=== PATIENT | female | born 1955 | race Caucasian/White ===

== ENCOUNTER 2016-08-31 03:45 | Inpatient (IN) | payer OTHER ==
[~2016-08-31] VITALS: Ht 144.8 cm; Wt 55.0 kg
[~2016-08-31 03:45] MED LIST: AMBIEN10 MG PO; CULTURELLE10 Billion PO; DESYREL 50MG50 MG; DESYREL 50MG50 MG PO; FLAGYL 250250 MG/TAB PO; FLAGYL500 MG PO; IMITREX50 MG PO; LEVAQUIN 5500 MG/TA1 PO; LEVAQUIN 750MG750 M1 PO; LISINOPRIL10 MG PO; NORCO 325 MG-51 TAB PO; OMNICEF 300MG300 MG PO; PANCREATIC ENZY1 CAP PO; PERCOCET 325 MG1 TA2 PO; PHENERGAN 25 TA25 MG PO; PHENERGAN25 MG RC; PHENERGAN50 MG/SUPP RC; PRILOSEC 20MG20 MG PO; PROBIOTIC; ULTRAM 50MG TAB50 MG PO; XANAX0.5 MG PO; ZANTAC150 MG PO; ZOFRAN ODT4 MG PO; [UNRECOGNIZED DRUG - OTHER] PO
[2016-08-31 04:10] LABS: BASO % 0.3 % (0.0-2.0); EOS # 0.2 (0.0-0.7); EOS % 3.2 % (0-4.0); GRAN # 4.5 (1.4-6.5); GRAN % 68.9 % (42.2-75.2); HEMATOCRIT 37.9 % (37.0-47.0); HEMOGLOBIN 12.5 g/dl (12.5-16.0); LYMPH # 1.4 (1.2-3.4); LYMPH % 21.5 % (20.0-51.0); MEAN CELL VOLUME 84 fl (80.0-100.0); MEAN CORPUSCULAR HEMOGLOBIN 28 pg (27.0-31.0); MEAN CORPUSCULAR HGB CONC 33 g/dl (33.0-37.0); MEAN PLATELET VOLUME 8.7 fl (7.4-10.4); MONO # 0.4 (0.1-0.6); MONO % 5.9 % (1.7-9.3); PLATELET COUNT 124 K/mm3 (130-400); RED BLOOD COUNT 4.52 M/mm3 (4.10-5.30); REDCELL DISTRIBUTION WIDTH-CV 13.2 % (11.5-14.5); WHITE BLOOD COUNT 6.5 K/mm3 (4.8-10.8)
[2016-08-31 04:18] LABS: ALANINE AMINOTRANSFERASE 148 U/L (9-52); ALBUMIN 3.8 gm/dL (3.5-5.0); ALKALINE PHOSPHATASE 160 U/L (50-136); ANION GAP 10 mmol/L (7-16); BILIRUBIN,TOTAL 0.8 mg/dL (0.0-1.0); BLOOD UREA NITROGEN 20 mg/dL (7-17); CALCIUM 8.8 mg/dL (8.4-10.2); CARBON DIOXIDE 29 mmol/L (22-30); CHLORIDE 98 mmol/L (98-107); CREATININE, serum 1.16 mg/dL (0.52-1.25); GLUCOSE 94 mg/dL (74-106); LIPASE 722 U/L (23-300); SODIUM 137 mmol/L (137-145); TOTAL PROTEIN 6.8 gm/dL (6.4-8.2)
[2016-08-31] MEDS ORDERED: PRILOSEC 20MG20 MG PO (04:20)
[2016-08-31 04:27] LABS: B-TYPE NATRIURETIC PEPTIDE 391 pg/mL (0-125)
[2016-08-31 04:37] LABS: TROPONIN-I < 0.012 ng/mL (0.000-0.034)
[2016-08-31 08:30] VITALS: BP 135/75; PULSE 114; TEMP 97.8
[2016-08-31] MEDS ORDERED: XANAX .25M0.25 MG/TA PO (09:07)
[2016-08-31] MEDS ORDERED: CREON 120000 U-1 ECC PO (09:09)
[2016-08-31] MEDS ORDERED: CALAN120 MG PO (10:54)
[2016-08-31 11:45] VITALS: BP 115/64; PULSE 112; TEMP 98.3
[2016-08-31 15:53] VITALS: BP 119/62; PULSE 105; TEMP 99.4
[2016-08-31 21:11] VITALS: BP 142/67; PULSE 89; TEMP 98.8
[2016-08-31 22:57] VITALS: BP 146/81; PULSE 89; TEMP 98.1
[2016-09-01 04:40] LABS: BASO % 0.1 % (0.0-2.0); GRAN # 6.8 (1.4-6.5); GRAN % 74.4 % (42.2-75.2); HEMATOCRIT 38.3 % (37.0-47.0); HEMOGLOBIN 12.4 g/dl (12.5-16.0); LYMPH # 1.5 (1.2-3.4); LYMPH % 16.2 % (20.0-51.0); MEAN CELL VOLUME 86 fl (80.0-100.0); MEAN CORPUSCULAR HEMOGLOBIN 28 pg (27.0-31.0); MEAN CORPUSCULAR HGB CONC 32 g/dl (33.0-37.0); MEAN PLATELET VOLUME 8.7 fl (7.4-10.4); MONO # 0.8 (0.1-0.6); MONO % 9.1 % (1.7-9.3); PLATELET COUNT 132 K/mm3 (130-400); RED BLOOD COUNT 4.47 M/mm3 (4.10-5.30); REDCELL DISTRIBUTION WIDTH-CV 13.3 % (11.5-14.5); WHITE BLOOD COUNT 9.2 K/mm3 (4.8-10.8)
[2016-09-01 04:42] VITALS: BP 151/60; PULSE 96; TEMP 98.1
[2016-09-01 04:47] LABS: CALCIUM 9.1 mg/dL (8.4-10.2); CREATININE, serum 0.78 mg/dL (0.52-1.25); POTASSIUM 4.5 mmol/L (3.4-5.0)
[2016-09-01 08:48] VITALS: BP 140/66; PULSE 101; TEMP 99.4
[2016-09-01 12:43] VITALS: BP 131/67; PULSE 102; TEMP 100.1
[2016-09-01 16:59] VITALS: BP 105/59; PULSE 115; TEMP 99.2
[2016-09-01 19:28] VITALS: BP 131/66; PULSE 101; TEMP 99
[2016-09-01 23:42] VITALS: BP 111/77; PULSE 123; TEMP 96
[2016-09-02] VITALS (1115 sets, daily range): BP systolic 111–132; BP diastolic 46–103; PULSE 76–196; TEMP 97.4–98.7; O2SAT 75–100
[2016-09-02] MEDS ORDERED: SENNA8.6 MG PO (01:58)
[2016-09-02 05:55] LABS: ADJUSTED CALCIUM 9.2 mg/dL (8.4-10.2); ALBUMIN 3.2 gm/dL (3.5-5.0); BILIRUBIN,TOTAL 0.7 mg/dL (0.0-1.0); CALCIUM 8.6 mg/dL (8.4-10.2); CREATININE, serum 0.81 mg/dL (0.52-1.25); MAGNESIUM 1.9 mg/dL (1.6-2.3); POTASSIUM 4.2 mmol/L (3.4-5.0); TOTAL PROTEIN 6.3 gm/dL (6.4-8.2)
[2016-09-02 06:24] LABS: THYROID STIMULATING HORMONE 0.705 uIU/mL (0.465-4.680)
[2016-09-03] VITALS (808 sets, daily range): BP systolic 130–181; BP diastolic 59–88; PULSE 76–116; TEMP 98–99.5; O2SAT 84–100
[2016-09-03 05:59] LABS: BASO % 0.3 % (0.0-2.0); EOS # 0.1 (0.0-0.7); EOS % 2.4 % (0-4.0); GRAN # 4.1 (1.4-6.5); GRAN % 70.9 % (42.2-75.2); LYMPH # 1.1 (1.2-3.4); MEAN CELL VOLUME 86 fl (80.0-100.0); MEAN CORPUSCULAR HGB CONC 32 g/dl (33.0-37.0); MEAN PLATELET VOLUME 8.4 fl (7.4-10.4); MONO # 0.4 (0.1-0.6); MONO % 7.1 % (1.7-9.3); PLATELET COUNT 159 K/mm3 (130-400); RED BLOOD COUNT 3.98 M/mm3 (4.10-5.30); REDCELL DISTRIBUTION WIDTH-CV 13.2 % (11.5-14.5); WHITE BLOOD COUNT 5.8 K/mm3 (4.8-10.8)
[2016-09-03 06:01] LABS: HEMATOCRIT 34.4 % (37.0-47.0); MEAN CORPUSCULAR HEMOGLOBIN 28 pg (27.0-31.0)
[2016-09-03 06:08] LABS: CALCIUM 8.1 mg/dL (8.4-10.2); CREATININE, serum 0.7 mg/dL (0.52-1.25); POTASSIUM 3.8 mmol/L (3.4-5.0)
[2016-09-03 06:19] LABS: TROPONIN-I 0.033 ng/mL (0.000-0.034)
[2016-09-04 00:25] VITALS: BP 121/83; PULSE 88; TEMP 98.1
[2016-09-04 04:17] VITALS: BP 151/65; PULSE 73; TEMP 97.9
[2016-09-04 08:11] VITALS: BP 147/76; PULSE 78; TEMP 98.6
[2016-09-04] MEDS ORDERED: PHENERGAN 25 TA25 MG PO (09:53)
[2016-09-04] MEDS ORDERED: ZESTRIL 10MG10 MG PO (09:54)
[2016-09-04] MEDS ORDERED: BETAPACE AF160 MG PO (09:54)
[2016-09-04] MEDS ORDERED: ASPIRIN 81M81 MG/TA2 PO (09:54)
== END 2016-09-04 11:10 | disposition home or self-care (01) | DRG 438 ==
LOC: COL.ER 03:45 → MEDICAL 06:02 → ICU 09-02 01:45 → IMCU 09-02 09:00 → ICU 09-02 09:21 → IMCU 09-02 09:46 → ICU 09-02 09:47 → IMCU 09-02 09:51 → MEDICAL 09-03 17:05
PROVIDERS: Emergency Medicine; Internal Medicine
DX: K85.90 Acute pancreatitis without necrosis or infection, unspecified (principal); I21.4 Non-ST elevation (NSTEMI) myocardial infarction; I48.91 Unspecified atrial fibrillation; I10 Essential (primary) hypertension; K86.1 Other chronic pancreatitis; F41.9 Anxiety disorder, unspecified; Z98.84 Bariatric surgery status
CPT/HCPCS: 99222-AI; 99232-AI; 99233-AI; 99239; A9502; C9113; G0378; J0360; J1170; J1644; J1650; J2405; J2550; J2785; J7030; J7050; Q9967

== ENCOUNTER 2016-09-18 12:19 | Emergency (ER) | payer OTHER ==
[~2016-09-18] VITALS: Ht 144.8 cm; Wt 50.9 kg
[~2016-09-18 12:19] MED LIST changes: +ASPIRIN 81M81 MG/TA2 PO; +BETAPACE AF160 MG PO; +CALAN120 MG PO; +CREON 120000 U-1 ECC PO; +SENNA8.6 MG PO; +XANAX .25M0.25 MG/TA PO; +ZESTRIL 10MG10 MG PO
[2016-09-18] MEDS ORDERED: BENADRYL25 M2 PO (12:46)
[2016-09-18 12:54] LABS: BASO % 0.2 % (0.0-2.0); EOS # 0.2 (0.0-0.7); EOS % 1.7 % (0-4.0); GRAN # 6.3 (1.4-6.5); LYMPH # 1.6 (1.2-3.4); MEAN CELL VOLUME 85 fl (80.0-100.0); MEAN CORPUSCULAR HGB CONC 32 g/dl (33.0-37.0); MEAN PLATELET VOLUME 8.6 fl (7.4-10.4); MONO # 0.6 (0.1-0.6); MONO % 6.8 % (1.7-9.3); PLATELET COUNT 353 K/mm3 (130-400); RED BLOOD COUNT 4.14 M/mm3 (4.10-5.30); REDCELL DISTRIBUTION WIDTH-CV 13.1 % (11.5-14.5); WHITE BLOOD COUNT 8.6 K/mm3 (4.8-10.8)
[2016-09-18 12:55] LABS: HEMATOCRIT 35.3 % (37.0-47.0); HEMOGLOBIN 11.2 g/dl (12.5-16.0); MEAN CORPUSCULAR HEMOGLOBIN 27 pg (27.0-31.0)
[2016-09-18 13:00] LABS: ALBUMIN 3.1 gm/dL (3.5-5.0); BILIRUBIN,TOTAL 0.8 mg/dL (0.0-1.0); CALCIUM 8.3 mg/dL (8.4-10.2); CREATININE, serum 1.39 mg/dL (0.52-1.25); POTASSIUM 4.3 mmol/L (3.4-5.0); TOTAL PROTEIN 6.5 gm/dL (6.4-8.2)
[2016-09-18 13:13] LABS: TROPONIN-I 0.025 ng/mL (0.000-0.034)
[2016-09-18 15:10] VITALS: BP 100/74; PULSE 90; TEMP 97.6
[2016-09-18] MEDS ORDERED: COLCRYS0.6 MG PO (15:14)
== END 2016-09-18 15:41 | disposition home or self-care (01) ==
LOC: COL.ER 12:19
PROVIDERS: Emergency Medicine
DX: R07.9 Chest pain, unspecified (principal); I31.3 Pericardial effusion (noninflammatory); J90 Pleural effusion, not elsewhere classified; G89.29 Other chronic pain; D64.9 Anemia, unspecified
CPT/HCPCS: C9113; J2405

== ENCOUNTER 2016-10-01 13:44 | Inpatient (IN) | payer OTHER ==
[~2016-10-01] VITALS: Ht 144.8 cm; Wt 62.9 kg
[2016-10-01] VITALS (244 sets, daily range): BP systolic 73–85; BP diastolic 45–49; PULSE 74–90; TEMP 97.8–98; O2SAT 66–100
[~2016-10-01 13:44] MED LIST changes: +BENADRYL25 M2 PO; +COLCRYS0.6 MG PO
[2016-10-01 14:58] LABS: BASO % 0.2 % (0.0-2.0); EOS # 0.1 (0.0-0.7); EOS % 1.2 % (0-4.0); GRAN # 7.1 (1.4-6.5); GRAN % 73.6 % (42.2-75.2); HEMATOCRIT 37.9 % (37.0-47.0); LYMPH # 1.5 (1.2-3.4); LYMPH % 15.9 % (20.0-51.0); MEAN CELL VOLUME 83 fl (80.0-100.0); MEAN CORPUSCULAR HEMOGLOBIN 26 pg (27.0-31.0); MEAN CORPUSCULAR HGB CONC 32 g/dl (33.0-37.0); MEAN PLATELET VOLUME 8.4 fl (7.4-10.4); MONO # 0.8 (0.1-0.6); MONO % 8.5 % (1.7-9.3); PLATELET COUNT 427 K/mm3 (130-400); RED BLOOD COUNT 4.57 M/mm3 (4.10-5.30); REDCELL DISTRIBUTION WIDTH-CV 13.2 % (11.5-14.5); WHITE BLOOD COUNT 9.7 K/mm3 (4.8-10.8)
[2016-10-01 15:05] LABS: ADJUSTED CALCIUM 9.4 mg/dL (8.4-10.2); ALANINE AMINOTRANSFERASE 35 U/L (9-52); ALBUMIN 2.9 gm/dL (3.5-5.0); ALKALINE PHOSPHATASE 100 U/L (50-136); ANION GAP 14 mmol/L (7-16); BILIRUBIN,TOTAL 0.7 mg/dL (0.0-1.0); BLOOD UREA NITROGEN 40 mg/dL (7-17); CALCIUM 8.5 mg/dL (8.4-10.2); CARBON DIOXIDE 23 mmol/L (22-30); CREATININE, serum 3.41 mg/dL (0.52-1.25); GLUCOSE 91 mg/dL (74-106); POTASSIUM 4.9 mmol/L (3.4-5.0); SODIUM 125 mmol/L (137-145); TOTAL PROTEIN 6.2 gm/dL (6.4-8.2)
[2016-10-01 15:10] LABS: CHLORIDE 88 mmol/L (98-107)
[2016-10-01 15:50] LABS: LIPASE 61 U/L (23-300)
[2016-10-01 16:15] LABS: PH 5 (5-8); URINE APPEARANCE Cloudy; URINE BACTERIA Rare /hpf; URINE BILIRUBIN Negative (NEGATIVE); URINE BLOOD Negative (NEGATIVE); URINE COLOR Amber; URINE GLUCOSE Negative (NEGATIVE); URINE KETONE Negative (NEGATIVE); URINE RBC 0-2 /hpf; URINE UROBILINOGEN Negative (NEGATIVE)
[2016-10-01 20:19] LABS: CREATINE KINASE < 20 U/L (30-135)
[2016-10-02] VITALS (972 sets, daily range): BP systolic 80–141; BP diastolic 42–73; PULSE 81–102; TEMP 97.6–98.4; O2SAT 73–100
[2016-10-02 06:13] LABS: CALCIUM 7.5 mg/dL (8.4-10.2); CREATININE, serum 1.95 mg/dL (0.52-1.25); MAGNESIUM 1.7 mg/dL (1.6-2.3); POTASSIUM 4.4 mmol/L (3.4-5.0)
[2016-10-03] VITALS (445 sets, daily range): BP systolic 122–143; BP diastolic 59–84; PULSE 96–109; TEMP 98–98.2; O2SAT 75–100
[2016-10-03 06:24] LABS: CALCIUM 7.7 mg/dL (8.4-10.2); CREATININE, serum 0.77 mg/dL (0.52-1.25); POTASSIUM 4.2 mmol/L (3.4-5.0)
== END 2016-10-03 13:30 | disposition home or self-care (01) | DRG 683 ==
LOC: COL.ER 13:44 → IMCU 16:04
PROVIDERS: Emergency Medicine; Internal Medicine
DX: N17.9 Acute kidney failure, unspecified (principal); E87.1 Hypo-osmolality and hyponatremia; I95.9 Hypotension, unspecified; K52.9 Noninfective gastroenteritis and colitis, unspecified; I10 Essential (primary) hypertension
CPT/HCPCS: 99223-AI; 99233-AI; 99239; A4315; J1265; J1644; J7030

== ENCOUNTER → 2016-11-13 | Outpatient (CLI) | payer BC, OTHER | LOC: MC.RAD 08:42 | DX: Z12.31 Encounter for screening mammogram for malignant neoplasm of breast (principal); Z80.3 Family history of malignant neoplasm of breast ==

== ENCOUNTER 2017-02-03 13:15 | Outpatient (RCR) | payer OTHER | END 2017-02-27 08:06 | disposition home or self-care (01) | LOC: WSPT 13:15 | DX: S29.012A Strain of muscle and tendon of back wall of thorax, initial encounter (principal); X50.1XXD Overexertion from prolonged static or awkward postures, subsequent encounter; Y99.0 Civilian activity done for income or pay | CPT/HCPCS: G0283-GP ==

== ENCOUNTER 2017-02-12 11:22 | Emergency (ER) | payer OTHER ==
[~2017-02-12] VITALS: Ht 144.8 cm; Wt 48.2 kg
[2017-02-12 11:24] VITALS: BP 142/97; TEMP 99.3
[2017-02-12 12:50] VITALS: PULSE 75
== END 2017-02-12 12:51 | disposition home or self-care (01) ==
LOC: COL.ER 11:22
DX: S09.90XA Unspecified injury of head, initial encounter (principal); M54.5 Low back pain; M25.552 Pain in left hip; M54.2 Cervicalgia; W07.XXXA Fall from chair, initial encounter; Y92.008 Other place in unspecified non-institutional (private) residence as the place of occurrence of the external cause; G89.29 Other chronic pain
CPT/HCPCS: J1170

== ENCOUNTER 2017-02-13 13:34 | Emergency (ER) | payer OTHER ==
[~2017-02-13] VITALS: Ht 144.8 cm; Wt 48.2 kg
[2017-02-13 13:36] VITALS: TEMP 97.9
[2017-02-13 16:40] LABS: PH 7 (5-8); SQUAMOUS EPITHELIAL None Seen /hpf; URINE APPEARANCE Clear; URINE BACTERIA None Seen /hpf; URINE BILIRUBIN Negative (NEGATIVE); URINE BLOOD Negative (NEGATIVE); URINE COLOR Straw; URINE GLUCOSE Negative (NEGATIVE); URINE KETONE Negative (NEGATIVE); URINE RBC 0-2 /hpf; URINE UROBILINOGEN Negative (NEGATIVE); URINE WBC None Seen /hpf
[2017-02-13 16:53] VITALS: BP 146/73; PULSE 75
== END 2017-02-13 16:55 | disposition home or self-care (01) ==
LOC: COL.ER 13:34
PROVIDERS: Physician Assistant
DX: F07.81 Postconcussional syndrome (principal); I10 Essential (primary) hypertension; R42 Dizziness and giddiness; R11.0 Nausea; R40.2412 Glasgow coma scale score 13-15, at arrival to emergency department; K86.1 Other chronic pancreatitis

== ENCOUNTER → 2017-03-03 | Outpatient (CLI) | payer OTHER | LOC: COL.RAD 08:33 | DX: G95.0 Syringomyelia and syringobulbia (principal); M41.84 Other forms of scoliosis, thoracic region ==

== ENCOUNTER 2017-06-02 07:26 | Day surgery (SDC) | payer OTHER ==
[~2017-06-02] VITALS: Ht 144.8 cm; Wt 48.5 kg
[2017-06-02 08:29] VITALS: BP 146/79; PULSE 62; TEMP 97.6
[2017-06-02 09:19] VITALS: BP 142/93; PULSE 68; TEMP 97.5
[2017-06-02 09:20] VITALS: BP 142/93; PULSE 70
[2017-06-02 09:35] VITALS: BP 133/83; PULSE 65
== END 2017-06-02 10:10 | disposition home or self-care (01) ==
LOC: SDCO 07:26
DX: Z12.11 Encounter for screening for malignant neoplasm of colon (principal); K64.0 First degree hemorrhoids; I10 Essential (primary) hypertension; D64.9 Anemia, unspecified; F41.9 Anxiety disorder, unspecified; I48.91 Unspecified atrial fibrillation; Z90.710 Acquired absence of both cervix and uterus; Z80.0 Family history of malignant neoplasm of digestive organs; Z85.41 Personal history of malignant neoplasm of cervix uteri; Z90.49 Acquired absence of other specified parts of digestive tract
CPT/HCPCS: OP; J2704; J7030

== ENCOUNTER → 2017-12-08 | Outpatient (CLI) | payer OTHER | LOC: COL.RAD 13:01 | DX: K83.8 Other specified diseases of biliary tract (principal); D73.89 Other diseases of spleen; R79.89 Other specified abnormal findings of blood chemistry; Z87.19 Personal history of other diseases of the digestive system; Z90.49 Acquired absence of other specified parts of digestive tract | CPT/HCPCS: Q9967 ==

== ENCOUNTER 2017-12-24 10:49 | Inpatient (IN) | payer OTHER ==
[~2017-12-24] VITALS: Ht 144.8 cm; Wt 49.5 kg
[2017-12-24 11:47] LABS: BASO % 0.3 % (0.0-2.0); EOS # 0.4 (0.0-0.7); EOS % 3.9 % (0-4.0); GRAN # 7.3 (1.4-6.5); GRAN % 71.3 % (42.2-75.2); HEMATOCRIT 37.1 % (37.0-47.0); LYMPH # 1.8 (1.2-3.4); LYMPH % 17.2 % (20.0-51.0); MEAN CELL VOLUME 82 fl (80.0-100.0); MEAN CORPUSCULAR HEMOGLOBIN 26 pg (27.0-31.0); MEAN CORPUSCULAR HGB CONC 32 g/dl (33.0-37.0); MEAN PLATELET VOLUME 8.1 fl (7.4-10.4); MONO # 0.7 (0.1-0.6); MONO % 7.1 % (1.7-9.3); PLATELET COUNT 167 K/mm3 (130-400); RED BLOOD COUNT 4.54 M/mm3 (4.10-5.30); REDCELL DISTRIBUTION WIDTH-CV 12.7 % (11.5-14.5)
[2017-12-24 11:56] LABS: ALANINE AMINOTRANSFERASE 25 U/L (9-52); ALBUMIN 3.5 gm/dL (3.5-5.0); ALKALINE PHOSPHATASE 92 U/L (50-136); ANION GAP 12 mmol/L (7-16); AST,SGOT 25 U/L (15-37); BILIRUBIN,TOTAL 0.6 mg/dL (0.0-1.0); BLOOD UREA NITROGEN 11 mg/dL (7-17); CALCIUM 8.4 mg/dL (8.4-10.2); CARBON DIOXIDE 28 mmol/L (22-30); CHLORIDE 94 mmol/L (98-107); CREATININE, serum 0.84 mg/dL (0.52-1.25); GLUCOSE 91 mg/dL (74-106); POTASSIUM 4.1 mmol/L (3.4-5.0); SODIUM 134 mmol/L (137-145); TOTAL PROTEIN 6.7 gm/dL (6.4-8.2)
[2017-12-24 12:05] LABS: TROPONIN-I < 0.012 ng/mL (0.000-0.034)
[2017-12-24 12:40] LABS: C-REACTIVE PROTEIN 12.4 mg/dL (0.0-0.9)
[2017-12-24 12:52] LABS: COLLECTION METHOD CLEAN CATCH
[2017-12-24 13:01] LABS: PH 6 (5-8); SQUAMOUS EPITHELIAL 0-2 /hpf; URINE APPEARANCE Clear; URINE BACTERIA None Seen /hpf; URINE BILIRUBIN Negative (NEGATIVE); URINE BLOOD Negative (NEGATIVE); URINE COLOR Yellow; URINE GLUCOSE Negative (NEGATIVE); URINE KETONE Negative (NEGATIVE); URINE LEUKOCYTE ESTERASE Negative (NEGATIVE); URINE NITRATE Negative (NEGATIVE); URINE PROTEIN(semi-quant) Negative (NEGATIVE); URINE RBC None Seen /hpf; URINE UROBILINOGEN Negative (NEGATIVE)
[2017-12-24 13:21] LABS: LIPASE 191 U/L (23-300)
[2017-12-24] MEDS ORDERED: OMNICEF 300MG300 MG PO (13:34)
[2017-12-24] MEDS ORDERED: NORVASC 5MG5 MG/TAB PO (13:35)
[2017-12-24 15:20] VITALS: BP 99/49; PULSE 79; TEMP 99
[2017-12-24 20:00] VITALS: BP 113/47; PULSE 87; TEMP 99
[2017-12-25] VITALS: BP 87/48; PULSE 81; TEMP 98.1
[2017-12-25 04:00] VITALS: BP 97/48; PULSE 74; TEMP 98.6
[2017-12-25 06:18] LABS: BASO % 0.4 % (0.0-2.0); EOS # 0.5 (0.0-0.7); EOS % 6.8 % (0-4.0); GRAN % 72.4 % (42.2-75.2); LYMPH # 0.9 (1.2-3.4); LYMPH % 12.4 % (20.0-51.0); MEAN CELL VOLUME 85 fl (80.0-100.0); MEAN CORPUSCULAR HGB CONC 32 g/dl (33.0-37.0); MEAN PLATELET VOLUME 8.3 fl (7.4-10.4); MONO # 0.5 (0.1-0.6); MONO % 7.7 % (1.7-9.3); PLATELET COUNT 143 K/mm3 (130-400); RED BLOOD COUNT 3.74 M/mm3 (4.10-5.30)
[2017-12-25 06:20] LABS: HEMATOCRIT 31.7 % (37.0-47.0); MEAN CORPUSCULAR HEMOGLOBIN 27 pg (27.0-31.0)
[2017-12-25 06:34] LABS: CALCIUM 7.8 mg/dL (8.4-10.2); CREATININE, serum 0.75 mg/dL (0.52-1.25); POTASSIUM 4.2 mmol/L (3.4-5.0)
[2017-12-25 08:47] VITALS: BP 98/43; PULSE 72; TEMP 97.6
[2017-12-25 11:44] VITALS: BP 107/47; PULSE 73; TEMP 97.8
[2017-12-25 15:44] VITALS: BP 109/57; PULSE 68; TEMP 98.3
[2017-12-25 21:31] VITALS: BP 110/50; PULSE 76; TEMP 98.8
[2017-12-26 01:30] VITALS: BP 133/74; PULSE 76; TEMP 98.8
[2017-12-26 06:15] LABS: BASO % 0.4 % (0.0-2.0); EOS # 0.4 (0.0-0.7); EOS % 7.4 % (0-4.0); GRAN # 3.1 (1.4-6.5); GRAN % 61.7 % (42.2-75.2); LYMPH % 20.3 % (20.0-51.0); MEAN CELL VOLUME 85 fl (80.0-100.0); MEAN CORPUSCULAR HEMOGLOBIN 27 pg (27.0-31.0); MEAN CORPUSCULAR HGB CONC 32 g/dl (33.0-37.0); MONO # 0.5 (0.1-0.6); MONO % 9.4 % (1.7-9.3); PLATELET COUNT 154 K/mm3 (130-400); RED BLOOD COUNT 3.68 M/mm3 (4.10-5.30); REDCELL DISTRIBUTION WIDTH-CV 13.1 % (11.5-14.5)
[2017-12-26 06:17] LABS: HEMATOCRIT 31.2 % (37.0-47.0)
[2017-12-26 06:28] LABS: CALCIUM 7.7 mg/dL (8.4-10.2); CREATININE, serum 0.67 mg/dL (0.52-1.25); MAGNESIUM 1.7 mg/dL (1.6-2.3)
[2017-12-26 07:30] VITALS: BP 112/50; PULSE 72; TEMP 97.8
[2017-12-26 11:44] VITALS: BP 121/60; PULSE 76; TEMP 99
[2017-12-26] MEDS ORDERED: TYLENOL 325MG325 MG PO (12:39)
[2017-12-26] MEDS ORDERED: NORCO 325 MG-51 TAB PO (12:41)
[2017-12-26] MEDS ORDERED: ZOFRAN 4MG T4 MG/TAB PO (12:41)
[2017-12-26] MEDS ORDERED: ZANTAC 150MG T150 MG PO (12:41)
[2017-12-26] MEDS ORDERED: VANCOCIN H125 MG/CAP PO (12:41)
== END 2017-12-26 13:44 | disposition home or self-care (01) | DRG 372 ==
LOC: COL.ER 10:49 → MEDICAL 13:41
PROVIDERS: Emergency Medicine; Physician Assistant
DX: A04.71 Enterocolitis due to Clostridium difficile, recurrent (principal); K86.1 Other chronic pancreatitis; I10 Essential (primary) hypertension; Z98.84 Bariatric surgery status; Z85.41 Personal history of malignant neoplasm of cervix uteri; I48.91 Unspecified atrial fibrillation; K21.9 Gastro-esophageal reflux disease without esophagitis
CPT/HCPCS: 99223-AI; 99232-AI; 99239; J1170; J1650; J1956; J2405; J7030; Q9967

== ENCOUNTER → 2019-06-15 | Outpatient (CLI) | payer OTHER ==
[~2019-06-15] MED LIST changes: +NORVASC 5MG5 MG/TAB PO; +TYLENOL 325MG325 MG PO; +VANCOCIN H125 MG/CAP PO; +ZANTAC 150MG T150 MG PO; +ZOFRAN 4MG T4 MG/TAB PO
== END ==
LOC: COL.RAD 09:22
DX: Z02.71 Encounter for disability determination (principal); M17.11 Unilateral primary osteoarthritis, right knee

== ENCOUNTER → 2019-12-16 | Outpatient (CLI) | payer BC | LOC: COL.RAD 11:56 | DX: G31.9 Degenerative disease of nervous system, unspecified (principal) ==

== ENCOUNTER → 2020-10-09 | Outpatient (CLI) | payer MEDICARE | LOC: MC.RAD 13:20 | DX: Z12.31 Encounter for screening mammogram for malignant neoplasm of breast (principal); Z98.82 Breast implant status ==